=== PATIENT | female | born 1995 | race Caucasian/White ===

== ENCOUNTER 2017-10-20 17:02 | Inpatient (IN) | payer SELFPAY ==
[~2017-10-20] VITALS: Ht 160 cm; Wt 85.9 kg
[~2017-10-20 17:02] MED LIST: PRENATAL1 TA7 PO
[2017-11-30] VITALS (28 sets, daily range): BP systolic 105–133; BP diastolic 55–78; PULSE 61–97; TEMP 98.2–98.9
[2017-11-30 08:48] LABS: BASO % 0.4 % (0.0-2.0); EOS % 0.4 % (0-4.0); GRAN # 8.1 (1.4-6.5); GRAN % 73.4 % (42.2-75.2); HEMATOCRIT 33.4 % (37.0-47.0); HEMOGLOBIN 10.9 g/dl (12.5-16.0); LYMPH % 18.5 % (20.0-51.0); MEAN CELL VOLUME 82 fl (80.0-100.0); MEAN CORPUSCULAR HEMOGLOBIN 27 pg (27.0-31.0); MEAN CORPUSCULAR HGB CONC 33 g/dl (33.0-37.0); MEAN PLATELET VOLUME 10.3 fl (7.4-10.4); MONO # 0.8 (0.1-0.6); MONO % 6.9 % (1.7-9.3); PLATELET COUNT 324 K/mm3 (130-400); RED BLOOD COUNT 4.08 M/mm3 (4.10-5.30); REDCELL DISTRIBUTION WIDTH-CV 15.6 % (11.5-14.5)
[2017-12-01 00:40] VITALS: BP 110/57; PULSE 67; TEMP 98.4
[2017-12-01 04:15] VITALS: BP 116/75; PULSE 99; TEMP 98.4
[2017-12-01 08:00] VITALS: BP 94/63; PULSE 70; TEMP 98.1
[2017-12-01] MEDS ORDERED: IBU800 M1 PO (08:34)
== END 2017-12-01 14:00 | disposition home or self-care (01) | DRG 775 ==
LOC: OB 11-30 07:09 → LDR 11-30 07:09 → OB 11-30 15:50 → LDR 12-03 08:43
PROVIDERS: Obstetrics & Gynecology
PROC: 10E0XZZ Delivery of Products of Conception, External Approach (ICD-10-PCS; principal; 2017-11-30)
DX: O69.81X0 Labor and delivery complicated by cord around neck, without compression, not applicable or unspecified (principal); O99.334 Smoking (tobacco) complicating childbirth; F17.210 Nicotine dependence, cigarettes, uncomplicated; Z3A.39 39 weeks gestation of pregnancy; Z37.0 Single live birth
CPT/HCPCS: J2590; J7120

== ENCOUNTER 2017-11-18 19:49 | Outpatient (CLI) | payer BC ==
[~2017-11-18] VITALS: Ht 160 cm; Wt 85.9 kg
[2017-11-18 20:55] VITALS: BP 118/64; PULSE 95
[2017-11-18 21:18] VITALS: BP 124/67; PULSE 84; TEMP 98.4
== END 2017-11-18 21:10 | disposition home or self-care (01) ==
LOC: LDRO 19:49
DX: O36.8130 Decreased fetal movements, third trimester, not applicable or unspecified (principal); Z3A.37 37 weeks gestation of pregnancy

== ENCOUNTER 2018-11-10 17:58 | Emergency (ER) | payer OTHER ==
[~2018-11-10] VITALS: Ht 160 cm; Wt 52.3 kg
[~2018-11-10 17:58] MED LIST changes: +IBU800 M1 PO
[2018-11-10 18:04] VITALS: BP 136/78; TEMP 97.6
[2018-11-10] MEDS ORDERED: MIRENA52 MG IY (18:13)
[2018-11-10 18:31] LABS: BASO % 0.4 % (0.0-2.0); EOS # 0.1 (0.0-0.7); EOS % 1.1 % (0-4.0); GRAN # 5.4 (1.4-6.5); GRAN % 59.5 % (42.2-75.2); HEMATOCRIT 41.3 % (37.0-47.0); HEMOGLOBIN 14.4 g/dl (12.5-16.0); LYMPH % 32.8 % (20.0-51.0); MEAN CELL VOLUME 87 fl (80.0-100.0); MEAN CORPUSCULAR HEMOGLOBIN 30 pg (27.0-31.0); MEAN CORPUSCULAR HGB CONC 35 g/dl (33.0-37.0); MEAN PLATELET VOLUME 9.3 fl (7.4-10.4); MONO # 0.6 (0.1-0.6); PLATELET COUNT 322 K/mm3 (130-400); RED BLOOD COUNT 4.76 M/mm3 (4.10-5.30); REDCELL DISTRIBUTION WIDTH-CV 13.2 % (11.5-14.5)
[2018-11-10 19:20] VITALS: PULSE 75
== END 2018-11-10 19:23 | disposition home or self-care (01) ==
LOC: COL.ER 17:58
PROVIDERS: Family Medicine
DX: G43.909 Migraine, unspecified, not intractable, without status migrainosus (principal)

== ENCOUNTER 2018-11-13 01:23 | Emergency (ER) | payer OTHER ==
[~2018-11-13] VITALS: Ht 160 cm; Wt 52.3 kg
[~2018-11-13 01:23] MED LIST changes: +MIRENA52 MG IY
[2018-11-13 01:29] VITALS: BP 128/79; TEMP 97.7
[2018-11-13 01:41] LABS: COLLECTION METHOD CLEAN CATCH
[2018-11-13 01:51] LABS: PH 5 (5-8); SQUAMOUS EPITHELIAL 0-2 /hpf; URINE APPEARANCE Clear; URINE BACTERIA None Seen /hpf; URINE BILIRUBIN Negative (NEGATIVE); URINE BLOOD 1+ (NEGATIVE); URINE COLOR Colorless; URINE GLUCOSE Negative (NEGATIVE); URINE KETONE Negative (NEGATIVE); URINE LEUKOCYTE ESTERASE Trace (NEGATIVE); URINE NITRATE Negative (NEGATIVE); URINE PROTEIN(semi-quant) Negative (NEGATIVE); URINE RBC None Seen /hpf; URINE UROBILINOGEN Negative (NEGATIVE)
[2018-11-13 02:48] LABS: BASO # 0.1 (0.0-0.2); BASO % 0.9 % (0.0-2.0); EOS # 0.1 (0.0-0.7); EOS % 1.6 % (0-4.0); GRAN % 53.1 % (42.2-75.2); HEMATOCRIT 42.3 % (37.0-47.0); HEMOGLOBIN 14.7 g/dl (12.5-16.0); LYMPH # 2.8 (1.2-3.4); LYMPH % 37.7 % (20.0-51.0); MEAN CELL VOLUME 87 fl (80.0-100.0); MEAN CORPUSCULAR HEMOGLOBIN 30 pg (27.0-31.0); MEAN CORPUSCULAR HGB CONC 35 g/dl (33.0-37.0); MEAN PLATELET VOLUME 9.5 fl (7.4-10.4); MONO # 0.5 (0.1-0.6); MONO % 6.4 % (1.7-9.3); PLATELET COUNT 333 K/mm3 (130-400); RED BLOOD COUNT 4.89 M/mm3 (4.10-5.30); REDCELL DISTRIBUTION WIDTH-CV 12.9 % (11.5-14.5)
[2018-11-13 03:00] LABS: ALBUMIN 4.3 gm/dL (3.5-5.0); BILIRUBIN,TOTAL 0.2 mg/dL (0.0-1.0); C-REACTIVE PROTEIN 2.6 mg/dL (0.0-0.9); CALCIUM 8.9 mg/dL (8.4-10.2); CREATININE, serum 0.57 mg/dL (0.52-1.25); TOTAL PROTEIN 7.9 gm/dL (6.4-8.2)
[2018-11-13 05:12] VITALS: PULSE 77
== END 2018-11-13 05:12 | disposition home or self-care (01) ==
LOC: COL.ER 01:23
PROVIDERS: Physician Assistant
DX: R10.11 Right upper quadrant pain (principal)
CPT/HCPCS: J7030; Q9967

== ENCOUNTER 2022-12-12 16:44 | Emergency (ER) | payer OTHER ==
[~2022-12-12] VITALS: Ht 160 cm; Wt 70.0 kg
[2022-12-12 16:47] VITALS: TEMP 98.6
[2022-12-12 18:30] VITALS: BP 100/67; PULSE 94
== END 2022-12-12 18:30 | disposition home or self-care (01) ==
LOC: COL.ER 16:44
DX: A08.4 Viral intestinal infection, unspecified (principal); Z87.891 Personal history of nicotine dependence; Z98.890 Other specified postprocedural states
CPT/HCPCS: J2405; J7030

== ENCOUNTER 2023-09-06 23:47 | Emergency (ER) | payer OTHER ==
[~2023-09-06] VITALS: Ht 160 cm; Wt 73.6 kg
[~2023-09-06 23:47] MED LIST changes: +PREDNISONE50 MG PO
[2023-09-06 23:52] VITALS: TEMP 99.6
[2023-09-07 00:15] LABS: COLLECTION METHOD CLEAN CATCH
[2023-09-07 00:23] LABS: BASO % 0.5 % (0.0-2.0); EOS % 0.5 % (0.0-4.0); GRAN # 5.1 K/mm3 (1.4-6.5); GRAN % 69.6 % (42.2-75.2); HEMATOCRIT 37.3 % (37.0-47.0); HEMOGLOBIN 13.1 g/dl (12.5-16.0); LYMPH # 1.9 K/mm3 (1.2-3.4); LYMPH % 26.4 % (20.0-51.0); MEAN CELL VOLUME 85 fl (80.0-100.0); MEAN CORPUSCULAR HEMOGLOBIN 30 pg (27-31); MEAN CORPUSCULAR HGB CONC 35 g/dl (33.0-37.0); MEAN PLATELET VOLUME 9.6 fl (7.4-10.4); MONO # 0.2 K/mm3 (0.1-0.6); PLATELET COUNT 314 K/mm3 (130-400); RED BLOOD COUNT 4.39 M/mm3 (4.10-5.30); REDCELL DISTRIBUTION WIDTH-CV 12.3 % (11.5-14.5)
[2023-09-07 00:34] LABS: PH 6.5 (5.0-8.5); URINE APPEARANCE Clear (CLEAR/HAZY); URINE BACTERIA None Seen /hpf (NONE SEEN); URINE BLOOD TRACE-INTACT (NEGATIVE); URINE COLOR Yellow (YELLOW); URINE GLUCOSE Negative (NEGATIVE); URINE KETONE Negative (NEGATIVE); URINE NITRATE Negative (NEGATIVE); URINE PROTEIN(semi-quant) Negative (NEGATIVE); URINE UROBILINOGEN 0.2 E.U/dL (0.2-1.0)
[2023-09-07 00:37] LABS: ALBUMIN 4.2 gm/dL (3.5-5.0); BILIRUBIN,TOTAL 0.4 mg/dL (0.2-1.2); CALCIUM 8.9 mg/dL (8.4-10.2); CREATININE, serum 0.72 mg/dL (0.57-1.11); POTASSIUM 3.5 mmol/L (3.5-4.5); TOTAL PROTEIN 7.4 gm/dL (6.2-8.1)
[2023-09-07 01:45] VITALS: BP 111/74; PULSE 95
== END 2023-09-07 01:45 | disposition home or self-care (01) ==
LOC: COL.ER 23:47
PROVIDERS: Emergency Medicine
DX: O26.891 Other specified pregnancy related conditions, first trimester (principal); R10.2 Pelvic and perineal pain; R10.31 Right lower quadrant pain; R10.32 Left lower quadrant pain; Z3A.09 9 weeks gestation of pregnancy; Z20.822 Contact with and (suspected) exposure to COVID-19; Z28.310 Unvaccinated for COVID-19

== ENCOUNTER 2024-08-31 21:26 | Outpatient (CLI) | payer OTHER ==
[~2024-08-31] VITALS: Ht 160 cm; Wt 99.5 kg
[~2024-08-31 21:26] MED LIST changes: +PRENATAL TABLET PO
--- NOTE | 2024-08-31 21:30 | NUR ---
Ambulatory to unit for labor assessment, accompanied by spouse. Pt reports "for the last hour and a half I've been having contractions every 5-10 minutes. Deines LOF or bloody show. Oriented to room ,monitor, plan of care.
[2024-08-31 21:45] VITALS: BP 127/73; PULSE 75; TEMP 98.1
[2024-08-31] MEDS ORDERED: LR 1,000 ML IV PRN (22:00)
[2024-08-31 22:15] VITALS: BP 113/63; PULSE 74
[2024-08-31 22:50] VITALS: BP 116/70; PULSE 82
--- NOTE | 2024-08-31 22:50 | NUR ---
SVE with no changes noted from previous exam.
--- NOTE | 2024-08-31 23:05 | NUR ---
Discharge instructions reviewed with pt and spouse. Questions invited and answerred. Ambulatory off unit.
== END 2024-08-31 23:05 | disposition home or self-care (01) ==
LOC: LDRO 21:26 → LDR 21:30 → LDRO 23:05
DX: O62.9 Abnormality of forces of labor, unspecified (principal); Z3A.37 37 weeks gestation of pregnancy
CPT/HCPCS: OP

== ENCOUNTER 2024-09-11 06:16 | Inpatient (IN) | payer OTHER ==
[2024-09-11] VITALS (29 sets, daily range): BP systolic 112–142; BP diastolic 60–87; PULSE 69–104; TEMP 97.9–99
--- NOTE | 2024-09-11 06:20 | NUR ---
PT AMBULATES ONTO THE UNIT WITH SPOUSE FOR SCHEDULED INDUCTION OF LABOR.PT REPORTS POSITIVE MOVEMENT.PT DENIES LOF/VB.PT REPORTS IRREGGULAR CONTRACTIONS.PT CHANGED INTO GOWN.POC REVIEWED WITH PT AND SPOUSE.EFM AND TOCO APPLIED AND TRACING CATEGORY 1.CONSENTS REVIEWED AND SIGNED.QUESTIONS ASKED AND ANSWERED.
[2024-09-11] MEDS ORDERED: LR & Oxytocin 500 ML IV SCH (06:30)
[2024-09-11] MEDS ORDERED: LR 1,000 ML IV SCH (06:30)
[2024-09-11] MEDS ORDERED: LR 1,000 ML IV PRN (06:30)
[2024-09-11 07:16] LABS: BASO % 0.3 % (0.0-2.0); EOS # 0.1 K/mm3 (0.0-0.7); EOS % 0.8 % (0.0-4.0); GRAN # 6.2 K/mm3 (1.4-6.5); GRAN % 68.4 % (42.2-75.2); LYMPH % 22.2 % (20.0-51.0); MEAN CELL VOLUME 81 fl (80.0-100.0); MEAN CORPUSCULAR HGB CONC 32 g/dl (33.0-37.0); MEAN PLATELET VOLUME 10.2 fl (7.4-10.4); MONO # 0.7 K/mm3 (0.1-0.6); MONO % 7.6 % (1.7-9.3); PLATELET COUNT 308 K/mm3 (130-400); RED BLOOD COUNT 3.83 M/mm3 (4.10-5.30); REDCELL DISTRIBUTION WIDTH-CV 16.1 % (11.5-14.5)
[2024-09-11 07:23] LABS: HEMATOCRIT 30.9 % (37.0-47.0); HEMOGLOBIN 9.9 g/dl (12.5-16.0); MEAN CORPUSCULAR HEMOGLOBIN 26 pg (27-31)
--- NOTE | 2024-09-11 07:32 | NUR ---
DR OCHOA AT BEDSIDE.SVE /-2. 07 AROM PERFORMED WITH LARGE GUSH OF CLEAR FLUID.PT TOELRATED PROCOEDURE WELL.
[2024-09-11] MEDS ORDERED: ROPivacaine PF 0.2% 200 ML IV ONE (09:45)
--- NOTE | 2024-09-11 10:07 | NUR ---
PT SITTING UP ON THE SIDE OF THE BD FOR EPIDURAL PLACEMENT.LR BOLUS INFUSING PER PROTOCOL.BP AND PULSE OX TRACING EVERY 5 MIMUTES. DIFFICULTY TRACING EFM AND TOCO DUE TO MATERNAL POSITIONING. 1000 TEST DOSE ADMINISTERED PER ATIF MASON.PT TOLERATED PROCEDURE WELL.
[2024-09-11] MEDS ORDERED: LR 500 ML IV PRN ×2 (10:30)
[2024-09-11] MEDS ORDERED: Naloxone 0.4 MG/ML VIAL IV PRN ×3 (10:30→12:45)
[2024-09-11] MEDS ORDERED: diphenhydrAMINE 50 MG/ML 1 ML VIAL IV PRN ×2 (10:30)
[2024-09-11] MEDS ORDERED: ePHEDrine 50 MG/10 ML VIAL IV PRN ×2 (10:30)
[2024-09-11] MEDS ORDERED: LR 1,000 ML IV ONE ×2 (10:30)
[2024-09-11] MEDS ORDERED: diphenhydrAMINE 25 MG CAP PO PRN ×2 (10:30)
[2024-09-11] MEDS ORDERED: Ondansetron 4 MG/2 ML VIAL IV PRN ×2 (10:30)
[2024-09-11] MEDS ORDERED: Magnes Hydrox (MOM) 80 MG/ML 30 ML CUP PO PRN (12:30)
[2024-09-11] MEDS ORDERED: Loratadine 10 MG TAB PO PRN (12:30)
--- NOTE | 2024-09-11 12:43 | NUR ---
1148 SVE PER THIS RN .DR OCHOA NOTIFIED. 1200 DR OCHOA AT BEDSIDE.SVE COMPLETE.ALL APPROPRIATE STAFF NOTIFIED.ROOM PREPARED FOR DELIVERY.GOOD PUSHES MADE BY MOTHER 1207 OF VIABLE FEMALE INFANT.NUCHAL CORD X1 REDUCED BY DR OCHOA.TERMINAL MECONIUM NOTED. STRONG CRY FROM INFANT WITH STIMULATION BY DR OCHOA. CORD CLAMPED AND CUT BY FATHER OF THE BABY.INFANT PLACED ON MATERNAL ABDOMEN.INFANT CARES ASSUMED BY JADE OSCAR RN. 1209 OF INTACT PLACENTA.PITOCIN BOLUS INFUSING PER PROTOCOL. 1ST DEGREE LACERATION REPAIRED BY DR OCHOA. FUNDUS FIRM AT THE UMBILICUS.LOCHIA WITHIN NORMAL LIMITS.ICE PACK PLACED ON THE PERINEUM. TOTAL QBL FOR THIS CASE 25ML.
[2024-09-11] MEDS ORDERED: oxyCODONE 5 MG TAB PO PRN (12:45)
[2024-09-11] MEDS ORDERED: Acetaminophen 500 MG TAB PO SCH ×2 (12:45→14:30)
[2024-09-11] MEDS ORDERED: Witch Hazel 50% Pads Bulk TUB TP PRN (12:45)
[2024-09-11] MEDS ORDERED: Phenylephrine/Mineral Oil/Petrolatum 57 GM TUBE RC PRN (12:45)
[2024-09-11] MEDS ORDERED: Tdap Vaccine 0.5 ML SYRINGE IM SCH (12:45)
[2024-09-11] MEDS ORDERED: Mag/Al Hydrox/Simeth Susp 30 ML CUP PO PRN (12:45)
[2024-09-11] MEDS ORDERED: Ibuprofen 800 MG TAB PO SCH ×2 (12:45→14:30)
[2024-09-11] MEDS ORDERED: Measles/Mumps/Rubella Virus Vaccine Live w Diluent 0.5 ML VIAL SQ SCH (12:45)
--- NOTE | 2024-09-11 15:28 | NUR ---
PT REPORTS FULL FEELING OF LEGS.PT ABLE TO AMBULATE INTO THE BATHROOM.PT ABLE TO VOID AT THIS TIME.ДМИТРИЙ CARE PROVIDED AND MESH PANTIES AND PAD APPLIED.NEW GOWN DONNED.PT AND SPOUSE AMBULATES INTO ROOM 216.PT AND SPOUSE ACCLIMATED TO ROOM.EDUCATION REVIEWED.PT AND SPOUSE VERBALIZE UNDERSTANDING.QUESTIONS ASKED AND ANSWERED.
[2024-09-11] MEDS ORDERED: Sennosides/Docusate 8.6-50 MG TAB PO SCH (17:00)
[2024-09-11] MEDS ORDERED: traZODone 50 MG TAB PO PRN (21:00)
[2024-09-12 04:28] VITALS: BP 120/59; PULSE 78; TEMP 97.9
[2024-09-12 08:30] VITALS: BP 140/77; PULSE 82; TEMP 98.4
[2024-09-12] MEDS ORDERED: MOTRIN 800800 MG/TAB PO (09:38)
--- NOTE | 2024-09-12 12:37 | NUR ---
Initial visit; Parents thanked Director [employer] for offering congratulations and God's blessings for the of their son. Director Of [employer] thanked family for choosing [facility].
== END 2024-09-12 14:05 | disposition home or self-care (01) | DRG 807 ==
LOC: LDR 06:16 → OB 06:16
PROVIDERS: ADMIT Obstetrics & Gynecology
PROC: 10E0XZZ Delivery of Products of Conception, External Approach (ICD-10-PCS; principal; 2024-09-11)
PROC: 0HQ9XZZ Repair Perineum Skin, External Approach (ICD-10-PCS; 2024-09-11)
PROC: 10907ZC Drainage of Amniotic Fluid, Therapeutic from Products of Conception, Via Natural or Artificial Opening (ICD-10-PCS; 2024-09-11)
PROC: 3E033VJ Introduction of Other Hormone into Peripheral Vein, Percutaneous Approach (ICD-10-PCS; 2024-09-11)
DX: O69.81X0 Labor and delivery complicated by cord around neck, without compression, not applicable or unspecified (principal); Z37.0 Single live birth; Z3A.39 39 weeks gestation of pregnancy; O70.0 First degree perineal laceration during delivery; Z23 Encounter for immunization
CPT/HCPCS: J2590; J2795; J7120